=== PATIENT | male | born 1990 | race Caucasian/White ===

== ENCOUNTER 2017-01-18 12:44 | Emergency (ER) | payer SELFPAY ==
[~2017-01-18] VITALS: Ht 188 cm; Wt 85.0 kg
[~2017-01-18 12:44] MED LIST: LEVE500 PO; PHEN100 PO
[2017-01-18 12:47] VITALS: BP 141/74; PULSE 71; RESP 16; O2SAT 97
[2017-01-18 13:22] VITALS: BP 119/60; PULSE 62; RESP 16; O2SAT 96
[2017-01-18 13:54] LABS: AUTOMATED NEUTROPHIL # 6.2 TH/MM3 (1.8-7.7); BASOPHIL % 0.1 % (0.0-2.0); EOSINOPHIL % 0.5 % (0.0-4.0); HEMATOCRIT 37.4 % (39.0-51.0); HEMO FLAGS DIFF FINAL; LYMPH % 10.1 % (9.0-44.0); LYMPHOCYTE # 0.7 TH/MM3 (1.0-4.8); MEAN CELL VOLUME 91.6 FL (80.0-100.0); MEAN CORPUSCULAR HEMOGLOBIN 31.9 PG (27.0-34.0); MEAN CORPUSCULAR HGB CONC 34.8 % (32.0-36.0); NEUT % 85.3 % (16.0-70.0); PLATELET COUNT 227 TH/MM3 (150-450); RED BLOOD COUNT 4.09 MIL/MM3 (4.50-5.90); RED CELL DISTRIBUTION WIDTH 12.6 % (11.6-17.2); WHITE BLOOD COUNT 7.3 TH/MM3 (4.0-11.0)
--- NOTE | 2017-01-18 14:01 | PD ---
HPI Chief Complaint: Suicide Ideation/Attempt Time Seen by Provider: 13:03 Travel History International Travel<30 days: No Contact w/Intl Traveler<30days: No Traveled to known affect area: No History of Present Illness HPI The patient is a 26-year-old male who presents to the emergency department for suicidal ideation. The patient states he has a history of alcohol abuse and depressive disorder, over the last month as been contemplating suicide. Patient states he has tried suicide in the past isolated in his wrist and drug ingestion. The patient states he is having thoughts of suicide, has thought of shooting himself in the mouth. The patient states he placed a gun in his mouth, however, the gun misfired. The patient also notes intermittent heavy alcohol use with previous seizure secondary to withdrawal. The patient states he drinks liquor, occasionally a pint per day. The patient's last drink of alcohol was last night, approximately 4 located. He denies any current chest pain, shortness of breath, nausea, vomiting, or abdominal pain. The patient's symptoms are moderate, there are no current alleviating or exacerbating factors. He denies any hallucinations or delusions. He denies any homicidal ideation. PFSH Past Medical History Hx Anticoagulant Therapy: No Blood Disorders: No Bipolar Disorder: Yes Anxiety: Yes Depression: Yes Cancer: No Cardiovascular Problems: No Chemotherapy: No Cerebrovascular Accident: No Diabetes: No Diminished Hearing: No Endocrine: No Genitourinary: No Hepatitis: Yes (Hep C) Immune Disorder: No Musculoskeletal: No Psychiatric: Yes (bipolar schizophrenic) Reproductive: No Respiratory: No Immunizations Current: Yes Seizures: Yes Influenza Vaccination: No Past Surgical History Abdominal Surgery: Yes (gallbladder) AICD: No Appendectomy: Yes Cardiac Surgery: No Cholecystectomy: Yes (May 2010) Ear Surgery: No Endocrine Surgery: No Eye Surgery: No Genitourinary Surgery: No Gynecologic Surgery: No Hysterectomy: No Oral Surgery: No Pacemaker: No Thoracic Surgery: No Other Surgery: Yes (gallbladder & appendix) Social History Alcohol Use: Yes (06/29/16) Tobacco Use: Yes (1 ppd) Substance Use: Yes (pt sts on methadone currently) Allergies-Medications (Allergen,Severity, Reaction): Coded Allergies: No Known Allergies (Verified , 06/30/16) Reported Meds & Prescriptions Reported Meds & Active Scripts Active Keppra (Levetriacetam) 500 Mg Tab 500 Mg PO BID 30 Days Reported Dilantin 100 Mg Kapseals (Phenytoin Sodium) 100 Mg Caper 100 Mg PO Q12H Review of Systems Except as stated in HPI: all other systems reviewed are Neg General / Constitutional: No: Fever Cardiovascular: No: Chest Pain or Discomfort Respiratory: No: Shortness of Breath Gastrointestinal: No: Nausea, Vomiting, Abdominal Pain Musculoskeletal: No: Weakness Psychiatric: Positive: Depression, Suicidal Ideations, Substance Abuse ( alcohol use), No: Homicidal Ideation Physical Exam Narrative GENERAL: Awake, alert, 26-year-old male who appears his stated age and is in no acute respiratory distress. SKIN: Warm and dry. HEAD: Atraumatic. Normocephalic. EYES: Pupils equal and round. No scleral icterus. No injection or drainage. ENT: No nasal bleeding or discharge. Mucous membranes pink and moist. NECK: Trachea midline. No JVD. CARDIOVASCULAR: Regular rate and rhythm. No murmur appreciated. RESPIRATORY: No accessory muscle use. Clear to auscultation. Breath sounds equal bilaterally. GASTROINTESTINAL: Abdomen soft, non-tender, nondistended. No rebound tenderness. MUSCULOSKELETAL: No obvious deformities. No clubbing. No cyanosis. No edema. NEUROLOGICAL: Awake and alert. No obvious cranial nerve deficits. Motor grossly within normal limits. Normal speech. Nonfocal. PSYCHIATRIC: Appropriate mood and affect; insight and judgment normal. Data Data Last Documented VS Vital Signs Date Time Temp Pulse Resp B/P Pulse Ox O2 Delivery O2 Flow Rate FiO2 01/18/17 13:22 62 16 119/60 96 Room Air Orders Resp Home Oxygen Walk Test (01/18/17 ) Complete Blood Count With Diff (01/18/17 13:20) Comprehensive Metabolic Panel (01/18/17 13:20) Psych Screen (01/18/17 13:20) Drug Screen, Random Urine (01/18/17 13:20) Alcohol (Ethanol) (01/18/17 13:20) Chlordiazepoxide (Librium) (01/18/17 13:30) Labs Laboratory Tests Test 01/18/17 13:40 White Blood Count 7.3 TH/MM3 Red Blood Count 4.09 MIL/MM3 Hemoglobin 13.0 GM/DL Hematocrit 37.4 % Mean Corpuscular Volume 91.6 FL Mean Corpuscular Hemoglobin 31.9 PG Mean Corpuscular Hemoglobin 34.8 % Concent Red Cell Distribution Width 12.6 % Platelet Count 227 TH/MM3 Mean Platelet Volume 7.6 FL Neutrophils (%) (Auto) 85.3 % Lymphocytes (%) (Auto) 10.1 % Monocytes (%) (Auto) 4.0 % Eosinophils (%) (Auto) 0.5 % Basophils (%) (Auto) 0.1 % Neutrophils # (Auto) 6.2 TH/MM3 Lymphocytes # (Auto) 0.7 TH/MM3 Monocytes # (Auto) 0.3 TH/MM3 Eosinophils # (Auto) 0.0 TH/MM3 Basophils # (Auto) 0.0 TH/MM3 CBC Comment DIFF FINAL Differential Comment Sodium Level 139 MEQ/L Potassium Level 3.8 MEQ/L Chloride Level 104 MEQ/L Carbon Dioxide Level 25.5 MEQ/L Anion Gap 10 MEQ/L Blood Urea Nitrogen 15 MG/DL Creatinine 0.79 MG/DL Estimat Glomerular Filtration 117 ML/MIN Rate Random Glucose 91 MG/DL Calcium Level 9.2 MG/DL Total Bilirubin 0.7 MG/DL Aspartate Amino Transf 21 U/L (AST/SGOT) Alanine Aminotransferase 54 U/L (ALT/SGPT) Alkaline Phosphatase 114 U/L Total Protein 7.3 GM/DL Albumin 4.0 GM/DL Urine Opiates Screen NEG Urine Barbiturates Screen NEG Urine Amphetamines Screen NEG Urine Benzodiazepines Screen NEG Urine Cocaine Screen POS Urine Cannabinoids Screen POS Ethyl Alcohol Level LESS THAN 3 MG/DL MDM Medical Decision Making Medical Screen Exam Complete: Yes Emergency Medical Condition: Yes Medical Record Reviewed: Yes Interpretation(s) Laboratory Tests Test 01/18/17 13:40 White Blood Count 7.3 TH/MM3 Red Blood Count 4.09 MIL/MM3 Hemoglobin 13.0 GM/DL Hematocrit 37.4 % Mean Corpuscular Volume 91.6 FL Mean Corpuscular Hemoglobin 31.9 PG Mean Corpuscular Hemoglobin 34.8 % Concent Red Cell Distribution Width 12.6 % Platelet Count 227 TH/MM3 Mean Platelet Volume 7.6 FL Neutrophils (%) (Auto) 85.3 % Lymphocytes (%) (Auto) 10.1 % Monocytes (%) (Auto) 4.0 % Eosinophils (%) (Auto) 0.5 % Basophils (%) (Auto) 0.1 % Neutrophils # (Auto) 6.2 TH/MM3 Lymphocytes # (Auto) 0.7 TH/MM3 Monocytes # (Auto) 0.3 TH/MM3 Eosinophils # (Auto) 0.0 TH/MM3 Basophils # (Auto) 0.0 TH/MM3 CBC Comment DIFF FINAL Differential Comment Sodium Level 139 MEQ/L Potassium Level 3.8 MEQ/L Chloride Level 104 MEQ/L Carbon Dioxide Level 25.5 MEQ/L Anion Gap 10 MEQ/L Blood Urea Nitrogen 15 MG/DL Creatinine 0.79 MG/DL Estimat Glomerular Filtration 117 ML/MIN Rate Random Glucose 91 MG/DL Calcium Level 9.2 MG/DL Total Bilirubin 0.7 MG/DL Aspartate Amino Transf 21 U/L (AST/SGOT) Alanine Aminotransferase 54 U/L (ALT/SGPT) Alkaline Phosphatase 114 U/L Total Protein 7.3 GM/DL Albumin 4.0 GM/DL Urine Opiates Screen NEG Urine Barbiturates Screen NEG Urine Amphetamines Screen NEG Urine Benzodiazepines Screen NEG Urine Cocaine Screen POS Urine Cannabinoids Screen POS Ethyl Alcohol Level LESS THAN 3 MG/DL Differential Diagnosis Differential diagnosis includes substance induced mood disorder, alcohol intoxication, depressive disorder NOS, mood disorder NOS, malingering. Narrative Course Labs were drawn and sent. Psychiatric evaluation was ordered. Patient was administered Librium 20 mg orally. Tox screen is positive for cocaine and cannabinoids, alcohol is negative. Patient is medically clear to be evaluated by psychiatry. Disposition as per psych. Diagnosis Primary Impression: Substance induced mood disorder Additional Impression: Suicidal ideation Condition: Stable Mikey Coffman MD Jan 18, 2017 14:00
[2017-01-18 14:07] LABS: ALT (GPT) 54 U/L (12-78); AMPHETAMINE, URINE NEG (NEG); ANION GAP 10 MEQ/L (5-15); AST (GOT) 21 U/L (15-37); BARBITURATES, URINE NEG (NEG); BICARBONATE 25.5 MEQ/L (21.0-32.0); BLOOD UREA NITROGEN 15 MG/DL (7-18); CHLORIDE 104 MEQ/L (98-107); COCAINE, URINE POS (NEG); GLOMERULAR FILTRATION RATE 117 ML/MIN (>89); POTASSIUM 3.8 MEQ/L (3.5-5.1); SODIUM (NA) 139 MEQ/L (136-145)
[2017-01-18 14:09] LABS: ALKALINE PHOSPHATASE 114 U/L (45-117); TOTAL BILIRUBIN ADULT 0.7 MG/DL (0.2-1.0)
[2017-01-18] MEDS ORDERED: METH40TA PO (14:58)
[2017-01-18 19:11] VITALS: BP 129/67; PULSE 62; RESP 16; O2SAT 99
[2017-01-18 22:52] VITALS: BP 111/55; PULSE 57; RESP 17; O2SAT 100
[2017-01-19 02:15] VITALS: BP 115/69; PULSE 62; RESP 18; TEMP 97.5; O2SAT 96
[2017-01-19 06:07] VITALS: BP 132/80; PULSE 51; RESP 16; O2SAT 99
--- NOTE | 2017-01-19 09:33 | MB ---
cc: BOBBY ZHOU MD DATE OF CONSULTATION 01/19/2017 PHYSICIAN REQUESTING CONSULTATION Emergency Department. REASON FOR CONSULTATION Voluntary psychiatric evaluation. HISTORY OF PRESENT ILLNESS Mr. Negro is a 26-year-old male with a history of polysubstance use issues who presented to the emergency department on a voluntary basis requesting a Schroeder Act and claiming suicidality as well as substance use, chiefly alcoholism. Reviewing the electronic medical record, I see the patient was admitted here under Dr. Gregg in 2009. The patient is seen and examined. Chart reviewed. Case discussed with nursing staff who reports that the patient's stated goal on arriving in the [facility] was getting into some sort of detox facility. The nurse arranged for the patient to enter into [facility] detox program but the patient refused saying that he "did not want to wake up at 07:00 a.m. and go to group therapy throughout the day." He said he "wanted somewhere where [he] could just do [his ] own thing." Nursing staff reports that they have also reached out to the patient's father with the patient's permission and the father describes the patient as "worthless. He does not work. He just drinks." Father apparently wants nothing to do with him. There has been no evidence of any suicidality or homicidality while under observation in the [facility]. On my examination this morning, the patient presents as extremely antisocial and manipulative. He is initially somewhat vague as to his goals in coming into the psychiatric emergency room. He claims to feel "depressed" but does not appear at all dysphoric, either under direct examination or when surreptitiously examined from the nursing station. He is unable to spontaneously generate any real depressive or hypomanic/manic symptoms. He denies any audiovisual hallucinations. I can elicit no delusional beliefs. He does not describe any current suicidality or homicidality but makes vague allusions to recent suicide attempts including putting a gun in his mouth, reportedly about a week ago. The remainder of the psychiatric ROS is negative. The patient concludes by saying that he wants us to get him into a chem dep program where participation in activities is not required. PAST PSYCHIATRIC HISTORY The patient reports a history of depression and polysubstance use issues. He is not currently under the care of a psychiatrist. He is not taking any psychotropic medications. His most recent admission was about a year ago for depression reportedly. He reports that he has suicide attempts including an overdose on Tylenol about 7 years ago. He says that he tried to put a gun in his mouth about a week ago but it misfired. FAMILY HISTORY The patient reports that his maternal aunt had bipolar disorder and completed suicide. He denies any other family psychiatric history. CHEMICAL DEPENDENCY HISTORY The patient maintains that he is drinking a half a gallon of vodka a day and is blacking out because of his drinking, although his alcohol level was undetectable on presentation here. He also says that he is going to the methadone clinic but cannot afford his methadone dose of 100 mg daily. He also uses cocaine occasionally. SOCIAL HISTORY The patient reports that he is in the process of moving into a new place. He is future-oriented in this regard. He is single with no children. Denies any history. He does endorse a history of drug charges and violating probation. He denies any history of violent crime. He has an 11th grade education and is not working. Apparently the gun was a roommate's and he is no longer in direct contact with that roommate from what I can gather. PAST MEDICAL HISTORY No reported medical issues. REVIEW OF SYSTEMS No reported headache, vision or hearing changes, chest pain, shortness of breath, bowel or bladder issues. No reported withdrawal symptoms. No other physical complaints. PHYSICAL EXAMINATION Vital signs: T97.5; P51; R16; BP132/80; SpO2 99% RA. Physical examination was completed in the emergency room by the ER staff and the patient was medically cleared. On my examination today, the patient appears to be well-nourished and well-developed and in no acute physical distress. No motoric abnormalities noted. No hand tremor, no diaphoresis, no mydriasis, no lacrimation, no rhinorrhea, no piloerection, no other evidence of any GABAergic or opiate withdrawal. LABORATORY Reviewed. CBC, CMP unremarkable. Toxicology was positive for cocaine and cannabinoids. Alcohol level was undetectable as I said. MENTAL STATUS EXAM The patient is in hospital gown. He is well-groomed. He is maintaining basic hygiene. He is awake, alert and oriented x 3. No evidence of delirium. No abnormal motor movements noted. Steady gait and station. Speech is within normal limits for rate, tone and volume. Language and fund of knowledge seem average. Mood is reportedly depressed but there is a significant mismatch with his affect which is fairly full and reactive and not at all depressed. Thought process linear. No loosening of associations. No evident delusions. Denies audiovisual hallucinations. No current suicidal or homicidal ideation. Insight and judgment are perhaps fair at best generally but likely poor with respect to his substance use issues. ASSESSMENT AND PLAN 1. Antisocial personality disorder, suspected, possibly with some other comorbid cluster B personality traits. 2. Polysubstance dependence. 3. Possibly malingering to obtain opiate replacement as he reports he cannot afford his methadone. This is a 26-year-old male with psychiatric history as detailed above who presents voluntarily for psychiatric evaluation. The patient is extremely antisocial and manipulative on my examination and has apparently rebuffed the earnest efforts of the nursing staff to achieve his stated goal of getting him to a detoxification facility because he finds the regimen at the proposed facility too taxing. I can detect no unstable mood, anxiety or psychotic disorder in this patient at this time. I have explained to him that this program could be helpful for him and that he should take advantage of the opportunity to get help for his substance use issues as this is likely his greatest risk factor for ongoing self-harm. He has declined, reiterating that he just wants somewhere where he can chill out for awhile. Patient is requesting discharge from the psychiatric emergency room. He is not presently suicidal or homicidal. He appears to be attending to his basic needs. His issues seem related primarily to substance use and antisocial personality. The patient does not meet Schroeder Act criteria after weighing the relevant factors. Given that he does not meet Schroeder Act criteria and given that he is requesting discharge from the ED, I have no choice but to recommend his discharge. I fear his prognosis is poor if he cannot get his substance use and personality issues under better control. Patient to return to ED for any concerning psychiatric symptoms as part of a general safety plan. Nursing staff will provide him with an outpatient chemical dependency and general mental health referral. The patient is psychiatrically cleared for discharge from . the emergency room. Thank you very much for this consultation. Bobby Zhou DC/AISSATOU /8:32 AM /9:17 AM MTDShon
== END 2017-01-19 09:04 | disposition home or self-care (01) ==
LOC: NEPE 12:44 → NEPJ 01-19 09:04
DX: F39 Unspecified mood [affective] disorder (principal); R45.851 Suicidal ideations; F20.9 Schizophrenia, unspecified; F31.9 Bipolar disorder, unspecified; F41.8 Other specified anxiety disorders; B19.20 Unspecified viral hepatitis C without hepatic coma; F17.210 Nicotine dependence, cigarettes, uncomplicated
CPT/HCPCS: 80053; 80307; 85025; 99283

== ENCOUNTER 2017-01-19 23:56 | Emergency (ER) | payer SELFPAY ==
[~2017-01-19 23:56] MED LIST changes: -LEVE500 PO; +METH40TA PO; -PHEN100 PO
[2017-01-20 00:20] VITALS: BP 125/68; PULSE 56; RESP 16; O2SAT 99
--- NOTE | 2017-01-20 01:10 | PD ---
HPI Chief Complaint: Psychiatric Symptoms Time Seen by Provider: 01:08 Travel History International Travel<30 days: No Contact w/Intl Traveler<30days: No History of Present Illness HPI Patient was transferred from [facility] under Schroeder act for suicidal ideations. Patient states he is still feeling suicidal but denies any homicidal ideations. Patient denies any medical concerns this time. He denies any chest pain, shortness of breath, headache, fever, nausea, vomiting, or diarrhea. Patient states that he has a history of alcohol withdrawal seizures and was on Librium yesterday when he was here. PFSH Past Medical History Hx Anticoagulant Therapy: No Blood Disorders: No Bipolar Disorder: Yes (FAMILY HISTORY PER PATIENT (AUNT)) Anxiety: Yes Depression: Yes Cancer: No Cardiovascular Problems: No Chemotherapy: No Cerebrovascular Accident: No Diabetes: No Diminished Hearing: No Endocrine: No Genitourinary: No Hepatitis: Yes (Hep C) Immune Disorder: No Implanted Vascular Access Dvce: No Musculoskeletal: No Psychiatric: Yes (bipolar schizophrenic) Reproductive: No Respiratory: No Immunizations Current: Yes Seizures: Yes (ALCOHOL WITHDRAWL) Past Surgical History Abdominal Surgery: Yes (gallbladder) AICD: No Appendectomy: Yes Cardiac Surgery: No Cholecystectomy: Yes (May 2010) Ear Surgery: No Endocrine Surgery: No Eye Surgery: No Genitourinary Surgery: No Gynecologic Surgery: No Hysterectomy: No Neurologic Surgery: No Oral Surgery: No Pacemaker: No Thoracic Surgery: No Other Surgery: Yes (gallbladder & appendix) Social History Alcohol Use: Yes (06/29/16) Tobacco Use: Yes (1 ppd) Substance Use: Yes Allergies-Medications (Allergen,Severity, Reaction): Coded Allergies: No Known Allergies (Verified , 06/30/16) Reported Meds & Prescriptions Reported Meds & Active Scripts Active Reported Methadone (Methadone HCl) 40 Mg Tab 100 Mg PO DAILY Review of Systems Except as stated in HPI: all other systems reviewed are Neg Physical Exam Narrative GENERAL: Well-developed, well nourished, in no acute distress, and non-ill appearing. SKIN: Warm and dry. HEAD: Atraumatic. Normocephalic. EYES: Pupils equal and round. EOMI. No scleral icterus. No injection or drainage. ENT: No nasal bleeding or discharge. Mucous membranes pink and moist. NECK: Trachea midline. Supple. No nuclear rigidity. CARDIOVASCULAR: Regular rate and rhythm. No murmur appreciated. RESPIRATORY: No accessory muscle use. No respiratory distress. Clear to auscultation. Breath sounds equal bilaterally. MUSCULOSKELETAL: No obvious deformities. No clubbing. No cyanosis. No edema. Full range of motion. NEUROLOGICAL: Awake and alert. No obvious cranial nerve deficits. Motor grossly within normal limits. Normal speech. PSYCHIATRIC: Appropriate mood and affect. Data Data Last Documented VS Vital Signs Date Time Temp Pulse Resp B/P Pulse Ox O2 Delivery O2 Flow Rate FiO2 01/20/17 00:20 56 16 125/68 99 Room Air Orders Psych Screen (01/20/17 00:23) Diet Regular Basic (01/20/17 Breakfast) MDM Medical Decision Making Medical Screen Exam Complete: Yes Emergency Medical Condition: Yes Differential Diagnosis Homicidal, suicidal, depression, alcohol withdrawal, other Narrative Course Patient was seen and examined. Labs were reviewed from [facility]. Patient medically cleared for further treatment and evaluation by psych. Final disposition per psych. Diagnosis Primary Impression: Suicidal ideation Condition: Stable Fer Chirinos Jan 20, 2017 01:10
[2017-01-20] MEDS ORDERED: LORazepam 2 MG TAB PO PRN (01:15)
[2017-01-20] MEDS ORDERED: FLUMAZENIL 0.5 MG/5 ML VIAL IV PUSH PRN (01:15)
[2017-01-20] MEDS ORDERED: LORazepam 1 MG TAB PO PRN (01:15)
[2017-01-20] MEDS ORDERED: LORazepam 2 MG/ML VIAL IV PUSH PRN ×4 (01:15)
[2017-01-20 02:00] VITALS: BP 130/72; PULSE 50; RESP 18; TEMP 97.1; O2SAT 98
[2017-01-20 06:20] VITALS: BP 125/68; PULSE 50; RESP 16; TEMP 97.4; O2SAT 100
--- NOTE | 2017-01-20 10:56 | PD ---
History of Present Illness Chief Complaint: Psychiatric Symptoms Time Seen by Provider: 10:30 Travel History International Travel<30 Days: No Contact w/Intl Traveler<30days: No Known affected area: No Legal Status Legal Status: Schroeder Act Schroeder Act Comment: INTITIATED BY: DR RAMIN NAVARRETE MD FROM [facility] History of Present Illness: This is a 26-year-old male who was brought to this emergency department under a Schroeder act initiated at [facility]. The patient was here yesterday and presented with multiple symptoms and an extensive history of alcohol and substance abuse. However he was discharged yesterday because he would only accept treatment for his alcoholism and substance abuse that did not require him to attend any therapies. The patient has been Schroeder acted back to this facility for making suicidal threats. This physician reviewed significant history from yesterday and 2009 as well as speaking with the patient. The patient continues to be extremely manipulative and antisocial. Apparently his father was called yesterday and does not want to help him due to his ongoing antisocial and substance abuse behavior. The patient continues to make threats to harm himself if he does not get his way. This physician feels that giving into the patient's manipulations is both enabling his ongoing substance abuse and counter therapeutic. Therefore, despite the patient's high risk for acting out and possibly harming himself, this physician will lift his Schroeder act and discharge him home. PFSH Past Medical History Hx Anticoagulant Therapy: No Blood Disorders: No Bipolar Disorder: Yes (FAMILY HISTORY PER PATIENT (AUNT)) Anxiety: Yes Depression: Yes Cancer: No Cardiovascular Problems: No Chemotherapy: No Cerebrovascular Accident: No Diabetes: No Diminished Hearing: No Endocrine: No Genitourinary: No Hepatitis: Yes (Hep C) Immune Disorder: No Implanted Vascular Access Dvce: No Musculoskeletal: No Psychiatric: Yes (bipolar schizophrenic) Reproductive: No Respiratory: No Immunizations Current: Yes Seizures: Yes (ALCOHOL WITHDRAWL) Past Surgical History Abdominal Surgery: Yes (gallbladder) AICD: No Appendectomy: Yes Cardiac Surgery: No Cholecystectomy: Yes (May 2010) Ear Surgery: No Endocrine Surgery: No Eye Surgery: No Genitourinary Surgery: No Gynecologic Surgery: No Hysterectomy: No Neurologic Surgery: No Oral Surgery: No Pacemaker: No Thoracic Surgery: No Other Surgery: Yes (gallbladder & appendix) Psychiatric History Psychiatric History Hx Psychiatric Treatment: PATIENT WAS LAST ADMITTED TO [facility] FROM 07/03/10 TO 07/10/10 FOR ADJUSTMENT REACTION. History of Inpatient Treatment: Yes Guns or firearms in home: Yes Social History Hx Alcohol Use: Yes (06/29/16) Hx Tobacco Use: Yes (1 ppd) Hx Substance Use: Yes Substance Use Type: Alcohol, Marijuana, Cocaine Other Substances Used: AGE 9 STARTED ABUSING DRUGS INCLUDING RITALIN. Hx of Substance Use Treatment: Yes Allergies-Medications (Allergen,Severity, Reaction): Coded Allergies: No Known Allergies (Verified , 06/30/16) Reported Meds & Prescriptions Reported Meds & Active Scripts Active Reported Methadone (Methadone HCl) 40 Mg Tab 100 Mg PO DAILY Review of Systems ROS Limitations: Clinical Condition Except as stated in HPI: all other systems reviewed are Neg Exam Exam Limitations: Clinical Condition Alert: Yes [place]: Person, Place, Date, Situation Mood: Calm Affect: Euthymic Speech: Clear, Logical Eye Contact: Normal Memory Intact: Immediate, Recent, Remote Delusions: No Suicidal: Ideation Insight/Judgement Impaired due to substance abuse but adequate. MDM Medical Decision Making Medical Record Reviewed: Yes Assessment/Plan Despite the patient's history and ongoing significant risk for acting out behavior, this physician is lifting his Schroeder act and discharging him home. To admit the patient for suicidal threats would be counter therapeutic. To admit the patient for alcohol and substance abuse would be inappropriate as this facility is not licensed for that kind of treatment. Furthermore, the patient does not want to actively participate in substance abuse treatment according to notes yesterday. He has not changed his mind today. Therefore this physician sees no reasonable alternative then to discharge him home. Orders Psych Screen (01/20/17 00:23) Diet Regular Basic (01/20/17 Breakfast) Alcohol Withdrawal Asmt-Ciwa ONCE (01/20/17 01:10) Flumazenil Inj (Romazicon Inj) (01/20/17 01:15) Lorazepam (Ativan) (01/20/17 01:15) Lorazepam Inj (Ativan Inj) (01/20/17 01:15) Lorazepam (Ativan) (01/20/17 01:15) Lorazepam Inj (Ativan Inj) (01/20/17 01:15) Lorazepam Inj (Ativan Inj) (01/20/17 01:15) Lorazepam Inj (Ativan Inj) (01/20/17 01:15) Diet Regular Basic (01/20/17 Lunch) Results Vital Signs Date Time Temp Pulse Resp B/P Pulse Ox O2 Delivery O2 Flow Rate FiO2 01/20/17 06:20 97.4 50 16 125/68 100 Room Air 01/20/17 02:00 97.1 50 18 130/72 98 Room Air 01/20/17 00:20 56 16 125/68 99 Room Air Diagnosis Primary Impression: Alcohol abuse Condition: Stable Francisco Le MD Jan 20, 2017 10:56
== END 2017-01-20 11:33 | disposition home or self-care (01) ==
LOC: NEPE 23:56 → NEPJ 01-20 11:33
DX: F32.9 Major depressive disorder, single episode, unspecified (principal); F10.10 Alcohol abuse, uncomplicated; R45.851 Suicidal ideations; B19.20 Unspecified viral hepatitis C without hepatic coma; F17.210 Nicotine dependence, cigarettes, uncomplicated
CPT/HCPCS: 99284

== ENCOUNTER 2017-10-24 11:00 | Emergency (ER) | payer SELFPAY ==
[2017-10-24] MEDS ORDERED: IOHEXOL 350 MG/ML 10 ML VIAL (for RAD DIAG) IVCONTRAST ONE (11:01)
[2017-10-24 11:02] VITALS: BP 144/92; PULSE 109; RESP 16; TEMP 98.5; O2SAT 98
[2017-10-24] MEDS ORDERED: AMBI10TA PO (11:47)
[2017-10-24] MEDS ORDERED: LORA-474 PO (11:47)
[2017-10-24] MEDS ORDERED: CYMB60CA PO (11:47)
--- NOTE | 2017-10-24 12:00 | PD ---
HPI Chief Complaint: Depression Time Seen by Provider: 11:38 Travel History International Travel<30 days: No Contact w/Intl Traveler<30days: No Traveled to known affect area: No History of Present Illness HPI 27-year-old male presents emergency Department voluntarily for psychiatric evaluation. He has had 2 suicidal attempts in the past week to week and a half. He tried hanging himself earlier in the week with a phone cord which snapped. He woke up this morning after taking six 30 milligram oxy's, six bars of Xanax, and drinking 2 handles of fireball 2 days ago in an attempt to kill himself. He for coming to the hospital for help he had a plan to go to the store by 6 bottles of Tylenol to take all of them. He has history of taking 6 bottles of Tylenol 6 years ago as suicidal attempt and being hospitalized for up to 40 days and was put on hospice and was told he was going to from liver failure. He says he is done with life and does not want to live anymore. Reports alcohol use daily. Reports smoking marijuana a few nights ago. Denies homicidal ideations. Denies visual or auditory hallucinations. Has history of anxiety, depression, PTSD and takes medications. Says his brother called him this morning and he talked to his 4-year-old goddaughter which changed his mind and he decided to come get help. Symptoms are aggravated by life events. He is complaining of right upper quadrant abdominal pain, diarrhea , vomiting that started when he woke up today. Denies fevers. History of hepatitis C. History of cholecystectomy. No known allergies. No other modifying factors or associated signs and symptoms. PFSH Past Medical History Hx Anticoagulant Therapy: No Blood Disorders: No Bipolar Disorder: Yes (FAMILY HISTORY PER PATIENT (AUNT)) Anxiety: Yes Depression: Yes Cancer: No Cardiovascular Problems: No Chemotherapy: No Cerebrovascular Accident: No Diabetes: No Diminished Hearing: No Endocrine: No Genitourinary: No Hepatitis: Yes (Hep C) Immune Disorder: No Implanted Vascular Access Dvce: No Musculoskeletal: No Psychiatric: Yes (bipolar schizophrenic) Reproductive: No Respiratory: No Immunizations Current: Yes Seizures: Yes (ALCOHOL WITHDRAWL) Tetanus Vaccination: < 5 Years Past Surgical History Abdominal Surgery: Yes (gallbladder) AICD: No Appendectomy: Yes Cardiac Surgery: No Cholecystectomy: Yes (May 2010) Ear Surgery: No Endocrine Surgery: No Eye Surgery: No Genitourinary Surgery: No Gynecologic Surgery: No Hysterectomy: No Neurologic Surgery: No Oral Surgery: No Pacemaker: No Thoracic Surgery: No Other Surgery: Yes (gallbladder & appendix) Social History Alcohol Use: Yes Tobacco Use: Yes (1 ppd) Substance Use: Yes Allergies-Medications (Allergen,Severity, Reaction): Coded Allergies: No Known Allergies (Verified Adverse Reaction, Unknown, 10/24/17) Reported Meds & Prescriptions Reported Meds & Active Scripts Active Reported Ambien (Zolpidem Tartrate) 10 Mg Tab 10 Mg PO HS PRN Ativan (Lorazepam) 1 Mg Tab 1 Mg PO TID PRN Cymbalta DR (Duloxetine HCl) 60 Mg Capdr 60 Mg PO DAILY Review of Systems Except as stated in HPI: all other systems reviewed are Neg Physical Exam Narrative GENERAL: Well-nourished, well-developed male patient, in no acute distress; afebrile, nontoxic appearing SKIN: Warm and dry. HEAD: Atraumatic. Normocephalic. EYES: Pupils equal and round. ENT: Mucosa pink and moist. NECK: Supple. Trachea midline. CARDIOVASCULAR: Regular rate and rhythm. No murmur appreciated. RESPIRATORY: No accessory muscle use. Clear to auscultation. Breath sounds equal bilaterally. GASTROINTESTINAL: Abdomen soft, right upper quadrant tenderness, nondistended. Hepatic and splenic margins not palpable. Bowel sounds are active 4 quadrants. MUSCULOSKELETAL: No obvious deformities. No clubbing. No cyanosis. No edema. NEUROLOGICAL: Awake and alert. Oriented 3. No obvious cranial nerve deficits. Motor grossly within normal limits. Normal speech. Moves all extremities. 5/5 strength to all extremities. PSYCHIATRIC: No delusional thought processes. No hallucinations. Data Data Last Documented VS Vital Signs Date Time Temp Pulse Resp B/P (MAP) Pulse Ox O2 Delivery O2 Flow Rate FiO2 10/24/17 22:44 73 18 111/57 (75) 97 Room Air 10/24/17 19:05 97.1 Orders Orders Complete Blood Count With Diff (10/24/17 11:14) Basic Metabolic Panel (Bmp) (10/24/17 11:14) Psych Screen (10/24/17 11:14) Drug Screen, Random Urine (10/24/17 11:14) Alcohol (Ethanol) (10/24/17 11:14) Salicylates (Aspirin) (10/24/17 11:14) Tylenol (Acetaminophen) (10/24/17 11:14) ^ Sitter (10/24/17 12:11) Ct Abd/Pel W Iv Contrast(Rout) (10/24/17 12:23) Iv Access Insert/Monitor (10/24/17 12:23) Ecg Monitoring (10/24/17 12:23) Oximetry (10/24/17 12:23) Sodium Chloride 0.9% Flush (Ns Flush) (10/24/17 12:30) Vascular Access Team Consult/P PRN (10/24/17 12:43) Vascular Poc Ultrasound (10/24/17 ) Diet Regular Basic (10/24/17 Dinner) Lipase (10/24/17 14:49) Hepatic Functional Panel (10/24/17 15:27) Iohexol 350 Inj (Omnipaque 350 Inj) (10/24/17 11:01) Diphenoxylate/Atropine Tab (Lomotil Tab) (10/24/17 20:45) Ed Discharge Order (10/24/17 22:16) Labs Laboratory Tests Test 10/24/17 11:30 10/24/17 11:35 10/24/17 19:32 Urine Opiates Screen NEG Urine Barbiturates Screen NEG Urine Amphetamines Screen NEG Urine Benzodiazepines Screen POS Urine Cocaine Screen NEG Urine Cannabinoids Screen NEG Blood Urea Nitrogen 11 MG/DL Creatinine 0.67 MG/DL Random Glucose 99 MG/DL Calcium Level 9.0 MG/DL Sodium Level 139 MEQ/L Potassium Level 3.6 MEQ/L Chloride Level 111 MEQ/L Carbon Dioxide Level 19.4 MEQ/L Anion Gap 9 MEQ/L Estimat Glomerular Filtration Rate 140 ML/MIN Total Bilirubin 0.4 MG/DL Direct Bilirubin 0.1 MG/DL Indirect Bilirubin 0.3 MG/DL Aspartate Amino Transf (AST/SGOT) 14 U/L Alanine Aminotransferase (ALT/SGPT) 27 U/L Alkaline Phosphatase 77 U/L Total Protein 8.0 GM/DL Albumin 3.9 GM/DL Lipase 76 U/L Salicylates Level LESS THAN 1.7 MG/DL Acetaminophen Level LESS THAN 2.0 MCG/ML Ethyl Alcohol Level 108 MG/DL White Blood Count 5.9 TH/MM3 Red Blood Count 4.39 MIL/MM3 Hemoglobin 14.0 GM/DL Hematocrit 40.0 % Mean Corpuscular Volume 91.2 FL Mean Corpuscular Hemoglobin 31.8 PG Mean Corpuscular Hemoglobin Concent 34.9 % Red Cell Distribution Width 13.5 % Platelet Count 257 TH/MM3 Mean Platelet Volume 7.0 FL Neutrophils (%) (Auto) 58.0 % Lymphocytes (%) (Auto) 29.2 % Monocytes (%) (Auto) 10.0 % Eosinophils (%) (Auto) 2.4 % Basophils (%) (Auto) 0.4 % Neutrophils # (Auto) 3.4 TH/MM3 Lymphocytes # (Auto) 1.7 TH/MM3 Monocytes # (Auto) 0.6 TH/MM3 Eosinophils # (Auto) 0.1 TH/MM3 Basophils # (Auto) 0.0 TH/MM3 CBC Comment DIFF FINAL Differential Comment MDM Medical Decision Making Medical Screen Exam Complete: Yes Emergency Medical Condition: Yes Medical Record Reviewed: Yes Differential Diagnosis Abdominal pain, suicidal ideation Narrative Course Patient presents voluntarily. He was Schroeder acted upon arrival to the ER. She is complaining of right upper quadrant abdominal pain, nausea, vomiting, diarrhea. Psych screen has been ordered. If the laboratory results are unremarkable, the patient will be medically cleared for psychiatric evaluation and disposition. CT abdomen/pelvis ordered. 1650: CT abdomen/pelvis concludes: Normal examination status post appendectomy. Cholecystectomy clips. No adenopathy free fluid or mass. BMP is unremarkable. 1900: CBC is pending. Labs will be reviewed and patient was medically cleared if unremarkable. Psych screen has been ordered. If the laboratory results are unremarkable, the patient will be medically cleared for psychiatric evaluation and disposition. Diagnosis Primary Impression: Medical clearance for psychiatric admission Additional Impression: Right upper quadrant abdominal pain Condition: Stable Joy Kapoor Oct 24, 2017 12:00
[2017-10-24 12:14] LABS: BICARBONATE 19.4 MEQ/L (21.0-32.0); BLOOD UREA NITROGEN 11 MG/DL (7-18); CHLORIDE 111 MEQ/L (98-107); CREATININE 0.67 MG/DL (0.60-1.30); GLOMERULAR FILTRATION RATE 140 ML/MIN (>89); GLUCOSE,RANDOM 99 MG/DL (74-106); SODIUM (NA) 139 MEQ/L (136-145)
[2017-10-24 12:19] LABS: ACETAMINOPHEN LESS THAN 2.0 MCG/ML (10.0-30.0)
[2017-10-24] MEDS ORDERED: SODIUM CHLORIDE 0.9% FLUSH 10 ML FLUSH IV FLUSH PRN (12:30)
[2017-10-24 13:45] VITALS: O2SAT 99
--- NOTE | 2017-10-24 16:44 | RADRPT ---
EXAM DATE/TIME: 10/24/2017 16:22 [facility] COMPARISON: No previous studies available for comparison. INDICATIONS : Right mid abdomen pain. IV CONTRAST: 91 cc Omnipaque 350 (iohexol) IV ORAL CONTRAST: No oral contrast ingested. RADIATION DOSE: 10.33 CTDIvol (mGy) MEDICAL HISTORY : Hepatitis C. SURGICAL HISTORY : Cholecystectomy. Appendectomy. ENCOUNTER: Initial ACUITY: 1 day PAIN SCALE: 7/10 LOCATION: Abdomen TECHNIQUE: Volumetric scanning of the abdomen and pelvis was performed. Using automated exposure control and ad justment of the mA and/or kV according to patient size, radiation dose was kept as low as reasonably achievable to obtain optimal diagnostic quality images. DICOM format image data is available electro nically for review and comparison. FINDINGS: LOWER LUNGS: The visualized lower lungs are clear. LIVER: Homogeneous density without lesion. There is no dilation of the biliary tree. Cholecystectomy clips. SPLEEN: Normal size without lesion. PANCREAS: Within normal limits. KIDNEYS: Normal in size and shape. There is no mass, stone or hydronephrosis. ADRENAL GLANDS: Within normal limits. VASCULAR: There is no aortic aneurysm. BOWEL/MESENTERY: The stomach, small bowel, and colon demonstrate no acute abnormality. There is no free intraperitone al air or fluid. Suture in the right lower quadrant consistent with appendectomy ABDOMINAL WALL: Within normal limits. RETROPERITONEUM: There is no lymphadenopathy. BLADDER: No wall thickening or mass. REPRODUCTIVE: Within normal limits. INGUINAL: There is no lymphadenopathy or hernia. MUSCULOSKELETAL: Within normal limits for patient age. CONCLUSION: Normal examination status post appendectomy. Cholecystectomy clips. No adenopathy free fluid or mass. Joseph Montesinos MD on October 24, 2017 at 16:41 Board Certified Radiologist. This report was verified electronically.
[2017-10-24 16:55] LABS: TOTAL BILIRUBIN ADULT 0.4 MG/DL (0.2-1.0)
[2017-10-24 17:05] LABS: ALBUMIN 3.9 GM/DL (3.4-5.0); DIRECT BILIRUBIN ADULT 0.1 MG/DL (0.0-0.2); INDIRECT BILIRUBIN 0.3 MG/DL (0.0-0.8)
[2017-10-24 19:05] VITALS: BP 135/66; PULSE 72; RESP 20; TEMP 97.1; O2SAT 99
[2017-10-24 20:11] LABS: AUTOMATED NEUTROPHIL # 3.4 TH/MM3 (1.8-7.7); BASOPHIL % 0.4 % (0.0-2.0); EOSINOPHIL # 0.1 TH/MM3 (0-0.4); EOSINOPHIL % 2.4 % (0.0-4.0); LYMPH % 29.2 % (9.0-44.0); LYMPHOCYTE # 1.7 TH/MM3 (1.0-4.8); MEAN CELL VOLUME 91.2 FL (80.0-100.0); MEAN CORPUSCULAR HEMOGLOBIN 31.8 PG (27.0-34.0); MEAN CORPUSCULAR HGB CONC 34.9 % (32.0-36.0); MONOCYTE # 0.6 TH/MM3 (0-0.9); PLATELET COUNT 257 TH/MM3 (150-450); RED BLOOD COUNT 4.39 MIL/MM3 (4.50-5.90); RED CELL DISTRIBUTION WIDTH 13.5 % (11.6-17.2); WHITE BLOOD COUNT 5.9 TH/MM3 (4.0-11.0)
[2017-10-24] MEDS ORDERED: DIPHENOXYLATE/ATROPINE 2.5 MG/0.025 MG TAB PO ONE (20:45)
--- NOTE | 2017-10-24 22:19 | PD ---
Physical Exam Date Seen by Provider: Oct 24, 2017 Time Seen by Provider: 22:17 Data Data Last Documented VS Vital Signs Date Time Temp Pulse Resp B/P (MAP) Pulse Ox O2 Delivery O2 Flow Rate FiO2 10/24/17 19:05 97.1 72 20 135/66 (89) 99 Room Air Orders Orders Complete Blood Count With Diff (10/24/17 11:14) Basic Metabolic Panel (Bmp) (10/24/17 11:14) Psych Screen (10/24/17 11:14) Drug Screen, Random Urine (10/24/17 11:14) Alcohol (Ethanol) (10/24/17 11:14) Salicylates (Aspirin) (10/24/17 11:14) Tylenol (Acetaminophen) (10/24/17 11:14) ^ Sitter (10/24/17 12:11) Ct Abd/Pel W Iv Contrast(Rout) (10/24/17 12:23) Iv Access Insert/Monitor (10/24/17 12:23) Ecg Monitoring (10/24/17 12:23) Oximetry (10/24/17 12:23) Sodium Chloride 0.9% Flush (Ns Flush) (10/24/17 12:30) Vascular Access Team Consult/P PRN (10/24/17 12:43) Vascular Poc Ultrasound (10/24/17 ) Diet Regular Basic (10/24/17 Dinner) Lipase (10/24/17 14:49) Hepatic Functional Panel (10/24/17 15:27) Iohexol 350 Inj (Omnipaque 350 Inj) (10/24/17 11:01) Diphenoxylate/Atropine Tab (Lomotil Tab) (10/24/17 20:45) Ed Discharge Order (10/24/17 22:16) Labs Laboratory Tests Test 10/24/17 11:30 10/24/17 11:35 10/24/17 19:32 Urine Opiates Screen NEG Urine Barbiturates Screen NEG Urine Amphetamines Screen NEG Urine Benzodiazepines Screen POS Urine Cocaine Screen NEG Urine Cannabinoids Screen NEG Blood Urea Nitrogen 11 MG/DL Creatinine 0.67 MG/DL Random Glucose 99 MG/DL Calcium Level 9.0 MG/DL Sodium Level 139 MEQ/L Potassium Level 3.6 MEQ/L Chloride Level 111 MEQ/L Carbon Dioxide Level 19.4 MEQ/L Anion Gap 9 MEQ/L Estimat Glomerular Filtration Rate 140 ML/MIN Total Bilirubin 0.4 MG/DL Direct Bilirubin 0.1 MG/DL Indirect Bilirubin 0.3 MG/DL Aspartate Amino Transf (AST/SGOT) 14 U/L Alanine Aminotransferase (ALT/SGPT) 27 U/L Alkaline Phosphatase 77 U/L Total Protein 8.0 GM/DL Albumin 3.9 GM/DL Lipase 76 U/L Salicylates Level LESS THAN 1.7 MG/DL Acetaminophen Level LESS THAN 2.0 MCG/ML Ethyl Alcohol Level 108 MG/DL White Blood Count 5.9 TH/MM3 Red Blood Count 4.39 MIL/MM3 Hemoglobin 14.0 GM/DL Hematocrit 40.0 % Mean Corpuscular Volume 91.2 FL Mean Corpuscular Hemoglobin 31.8 PG Mean Corpuscular Hemoglobin Concent 34.9 % Red Cell Distribution Width 13.5 % Platelet Count 257 TH/MM3 Mean Platelet Volume 7.0 FL Neutrophils (%) (Auto) 58.0 % Lymphocytes (%) (Auto) 29.2 % Monocytes (%) (Auto) 10.0 % Eosinophils (%) (Auto) 2.4 % Basophils (%) (Auto) 0.4 % Neutrophils # (Auto) 3.4 TH/MM3 Lymphocytes # (Auto) 1.7 TH/MM3 Monocytes # (Auto) 0.6 TH/MM3 Eosinophils # (Auto) 0.1 TH/MM3 Basophils # (Auto) 0.0 TH/MM3 CBC Comment DIFF FINAL Differential Comment [facility] [place] Medical Record Reviewed: Yes Supervised Visit with NAN: No Interpretation(s) Last 24 hours Impressions Abdomen/Pelvis CT 10/24/17 1223 Signed Impressions: Service Date/Time: Tuesday, October 24, 2017 16:22 - CONCLUSION: Normal examination status post appendectomy. Cholecystectomy clips. No adenopathy free fluid or mass. Joseph Montesinos MD Laboratory Tests Test 10/24/17 11:30 10/24/17 11:35 10/24/17 19:32 Urine Opiates Screen NEG Urine Barbiturates Screen NEG Urine Amphetamines Screen NEG Urine Benzodiazepines Screen POS Urine Cocaine Screen NEG Urine Cannabinoids Screen NEG Blood Urea Nitrogen 11 MG/DL Creatinine 0.67 MG/DL Random Glucose 99 MG/DL Calcium Level 9.0 MG/DL Sodium Level 139 MEQ/L Potassium Level 3.6 MEQ/L Chloride Level 111 MEQ/L Carbon Dioxide Level 19.4 MEQ/L Anion Gap 9 MEQ/L Estimat Glomerular Filtration Rate 140 ML/MIN Total Bilirubin 0.4 MG/DL Direct Bilirubin 0.1 MG/DL Indirect Bilirubin 0.3 MG/DL Aspartate Amino Transf (AST/SGOT) 14 U/L Alanine Aminotransferase (ALT/SGPT) 27 U/L Alkaline Phosphatase 77 U/L Total Protein 8.0 GM/DL Albumin 3.9 GM/DL Lipase 76 U/L Salicylates Level LESS THAN 1.7 MG/DL Acetaminophen Level LESS THAN 2.0 MCG/ML Ethyl Alcohol Level 108 MG/DL White Blood Count 5.9 TH/MM3 Red Blood Count 4.39 MIL/MM3 Hemoglobin 14.0 GM/DL Hematocrit 40.0 % Mean Corpuscular Volume 91.2 FL Mean Corpuscular Hemoglobin 31.8 PG Mean Corpuscular Hemoglobin Concent 34.9 % Red Cell Distribution Width 13.5 % Platelet Count 257 TH/MM3 Mean Platelet Volume 7.0 FL Neutrophils (%) (Auto) 58.0 % Lymphocytes (%) (Auto) 29.2 % Monocytes (%) (Auto) 10.0 % Eosinophils (%) (Auto) 2.4 % Basophils (%) (Auto) 0.4 % Neutrophils # (Auto) 3.4 TH/MM3 Lymphocytes # (Auto) 1.7 TH/MM3 Monocytes # (Auto) 0.6 TH/MM3 Eosinophils # (Auto) 0.1 TH/MM3 Basophils # (Auto) 0.0 TH/MM3 CBC Comment DIFF FINAL Differential Comment Differential Diagnosis MDM: High Differential diagnoses: Schizophrenia, schizoaffective disorder, bipolar, anxiety, depression, adjustment reaction, mood disorder NOS, ODD, depressive disorder NOS, dementia, dementia with agitation, psychosis NOS, substance induced mood disorder, DMDD, Asperger syndrome, infection,electrolyte abnormality, malingering. Narrative Course Mental health screening discussed with the patient. Psychiatric screen ordered. The patient has been medically cleared. The patient will be transferred to [facility]. Diagnosis Primary Impression: Medical clearance for psychiatric admission Additional Impression: Right upper quadrant abdominal pain Disposition: 65 DISC TO [facility] Condition: Stable Scottie Mcdonald Oct 24, 2017 22:19
[2017-10-24 22:44] VITALS: BP_SYST 11; BP_SYST 111; BP_DIAS 57; PULSE 73; RESP 18; O2SAT 97
== END 2017-10-24 23:38 ==
LOC: NEPD 11:00 → NEPJ 23:38
DX: R10.11 Right upper quadrant pain (principal); R19.7 Diarrhea, unspecified; F17.200 Nicotine dependence, unspecified, uncomplicated; B19.20 Unspecified viral hepatitis C without hepatic coma
CPT/HCPCS: 74177; 80048; 80076; 80307; 83690; 85025; 99285; Q9967

== ENCOUNTER 2017-10-31 06:27 | Emergency (ER) | payer SELFPAY ==
[~2017-10-31] VITALS: Ht 188 cm; Wt 100.0 kg
[~2017-10-31 06:27] MED LIST changes: +AMBI10TA PO; +CYMB60CA PO; +LORA-474 PO; -METH40TA PO
[2017-10-31 06:30] VITALS: BP 129/83; PULSE 88; RESP 16; TEMP 98.3; O2SAT 98
[2017-10-31] MEDS ORDERED: VENL25TA PO (06:49)
[2017-10-31 07:00] LABS: AUTOMATED NEUTROPHIL # 4.3 TH/MM3 (1.8-7.7); BASOPHIL % 0.3 % (0.0-2.0); EOSINOPHIL # 0.2 TH/MM3 (0-0.4); EOSINOPHIL % 2.8 % (0.0-4.0); HEMATOCRIT 39.6 % (39.0-51.0); HEMOGLOBIN 13.8 GM/DL (13.0-17.0); LYMPH % 24.4 % (9.0-44.0); LYMPHOCYTE # 1.6 TH/MM3 (1.0-4.8); MEAN CORPUSCULAR HEMOGLOBIN 32.5 PG (27.0-34.0); MEAN CORPUSCULAR HGB CONC 34.9 % (32.0-36.0); MEAN PLATELET VOLUME 7.4 FL (7.0-11.0); MONO % 6.8 % (0.0-8.0); MONOCYTE # 0.4 TH/MM3 (0-0.9); NEUT % 65.7 % (16.0-70.0); PLATELET COUNT 279 TH/MM3 (150-450); RED BLOOD COUNT 4.26 MIL/MM3 (4.50-5.90); RED CELL DISTRIBUTION WIDTH 13.7 % (11.6-17.2); WHITE BLOOD COUNT 6.6 TH/MM3 (4.0-11.0)
[2017-10-31] MEDS ORDERED: levETIRAcetam 500 MG TAB PO ONE (07:15)
[2017-10-31 07:21] LABS: BICARBONATE 23.1 MEQ/L (21.0-32.0); CALCIUM 8.7 MG/DL (8.5-10.1); CREATININE 0.86 MG/DL (0.60-1.30)
[2017-10-31 07:51] VITALS: BP 125/70; PULSE 82; RESP 16; O2SAT 100
--- NOTE | 2017-10-31 08:29 | RADRPT ---
EXAM DATE/TIME: 10/31/2017 08:09 [facility] COMPARISON: CT BRAIN W/O CONTRAST, June 30, 2016, 10:54. INDICATIONS : Cephalgia. Witnessed seizure. RADIATION DOSE: 36.52 CTDIvol (mGy) MEDICAL HISTORY : None SURGICAL HISTORY : Appendectomy. Cholecystectomy. ENCOUNTER: Initial ACUITY: 1 day PAIN SCALE: 3/10 LOCATION: Bilateral distal TECHNIQUE: Multiple contiguous axial images were obtained of the head. Using automated exposure control and adj ustment of the mA and/or kV according to patient size, radiation dose was kept as low as reasonably a chievable to obtain optimal diagnostic quality images. DICOM format image data is available electro nically for review and comparison. FINDINGS: CEREBRUM: The ventricles are normal for age. No evidence of midline shift, mass lesion, hemorrhage or acute in farction. No extra-axial fluid collections are seen. POSTERIOR FOSSA: The cerebellum and brainstem are intact. The 4th ventricle is midline. The cerebellopontine angle i s unremarkable. EXTRACRANIAL: The visualized portion of the orbits is intact. SKULL: The calvaria is intact. No evidence of skull fracture. CONCLUSION: No acute disease. No significant change has occurred. Jd Kate MD on October 31, 2017 at 8:23 Board Certified Radiologist. This report was verified electronically.
[2017-10-31] MEDS ORDERED: LEVE500 PO (08:55)
--- NOTE | 2017-10-31 08:55 | PD ---
HPI Chief Complaint: Seizure Time Seen by Provider: 07:02 Travel History International Travel<30 days: No Contact w/Intl Traveler<30days: No Traveled to known affect area: No History of Present Illness HPI Patient is a 27 year old male who comes in after a seizure. He says he has had seizures in the past, usually from withdrawal. He says he was on Keppra for seizures as well, but has not had it for the past week. He says he was feeling fine today, but he was unable to sleep. He does not remember the seizure, says he just woke up on the ground. Currently, he complains of some low back pain and pain to his tongue, because he says he bit it. He denies fever or chills. He denies headache. He is currently at [facility] for detox from opiates. He says he has been receiving ativan for withdrawal symptoms. PFSH Past Medical History Hx Anticoagulant Therapy: No Blood Disorders: No Bipolar Disorder: Yes Anxiety: Yes Depression: Yes Cancer: No Cardiovascular Problems: No Chemotherapy: No Cerebrovascular Accident: No Diabetes: No Diminished Hearing: No Endocrine: No Genitourinary: No Hepatitis: Yes (Hep C) Immune Disorder: No Implanted Vascular Access Dvce: No Musculoskeletal: No Psychiatric: Yes (bipolar schizophrenic) Reproductive: No Respiratory: No Immunizations Current: Yes Seizures: Yes (SUBSTANCE ABUSE WITHDRAWL) Tetanus Vaccination: < 5 Years Influenza Vaccination: No Past Surgical History Abdominal Surgery: Yes (gallbladder) AICD: No Appendectomy: Yes Cardiac Surgery: No Cholecystectomy: Yes (May 2010) Ear Surgery: No Endocrine Surgery: No Eye Surgery: No Genitourinary Surgery: No Gynecologic Surgery: No Hysterectomy: No Neurologic Surgery: No Oral Surgery: No Pacemaker: No Thoracic Surgery: No Other Surgery: Yes (gallbladder & appendix) Social History Alcohol Use: Yes Tobacco Use: Yes (1 ppd) Substance Use: Yes (POLYSUBSTANCE) Allergies-Medications (Allergen,Severity, Reaction): Coded Allergies: No Known Allergies (Verified Adverse Reaction, Unknown, 10/24/17) Reported Meds & Prescriptions Reported Meds & Active Scripts Active Keppra (Levetiracetam) 500 Mg Tab 500 Mg PO BID Reported Effexor (Venlafaxine HCl) 25 Mg Tab Unknown Dose PO Q12H Ambien (Zolpidem Tartrate) 10 Mg Tab 10 Mg PO HS PRN Ativan (Lorazepam) 1 Mg Tab 1 Mg PO TID PRN Review of Systems Except as stated in HPI: all other systems reviewed are Neg General / Constitutional: No: Fever, Chills Eyes: No: Blurred Vision HENT: No: Headaches, Lightheadedness, Sore Throat Cardiovascular: No: Chest Pain or Discomfort Respiratory: No: Shortness of Breath Gastrointestinal: No: Nausea, Vomiting Musculoskeletal: Positive: Pain, No: Edema Skin: No Rash, No Change in Pigmentation Neurologic: Positive: Seizures, No: Weakness, Dizziness Physical Exam Narrative GENERAL: Awake and alert, in no acute distress. SKIN: Focused skin assessment warm/dry. No wounds. HEAD: Atraumatic. Normocephalic. EYES: Pupils equal and round and reactive. No scleral icterus. EOMI. ENT: Mucous membranes pink and moist. NECK: Trachea midline. No JVD. CARDIOVASCULAR: Regular rate and rhythm. No murmur appreciated. RESPIRATORY: No accessory muscle use. Clear to auscultation. Breath sounds equal bilaterally. GASTROINTESTINAL: Abdomen soft, non-tender, nondistended. MUSCULOSKELETAL: No obvious deformities. No clubbing. No cyanosis. No edema. No spinal tenderness. NEUROLOGICAL: Awake and alert. No obvious cranial nerve deficits. Motor grossly within normal limits. Normal speech. PSYCHIATRIC: Appropriate mood and affect; insight and judgment normal. Data Data Last Documented VS Vital Signs Date Time Temp Pulse Resp B/P (MAP) Pulse Ox O2 Delivery O2 Flow Rate FiO2 10/31/17 10:42 10/31/17 07:51 82 16 100 10/31/17 06:30 98.3 Orders Orders Blood Glucose (10/31/17 06:36) Oximetry (10/31/17 06:36) Iv Access Insert/Monitor (10/31/17 06:36) Ecg Monitoring (10/31/17 06:36) Oxygen Administration (10/31/17 06:36) Basic Metabolic Panel (Bmp) (10/31/17 06:36) Complete Blood Count With Diff (10/31/17 06:36) Electrocardiogram (10/31/17 ) Magnesium (Mg) (10/31/17 07:12) Ct Brain W/O Iv Contrast(Rout) (10/31/17 ) Levetiracetam (Keppra) (10/31/17 07:15) Ed Discharge Order (10/31/17 08:55) Labs Laboratory Tests Test 10/31/17 06:45 10/31/17 07:30 White Blood Count 6.6 TH/MM3 Red Blood Count 4.26 MIL/MM3 Hemoglobin 13.8 GM/DL Hematocrit 39.6 % Mean Corpuscular Volume 93.0 FL Mean Corpuscular Hemoglobin 32.5 PG Mean Corpuscular Hemoglobin Concent 34.9 % Red Cell Distribution Width 13.7 % Platelet Count 279 TH/MM3 Mean Platelet Volume 7.4 FL Neutrophils (%) (Auto) 65.7 % Lymphocytes (%) (Auto) 24.4 % Monocytes (%) (Auto) 6.8 % Eosinophils (%) (Auto) 2.8 % Basophils (%) (Auto) 0.3 % Neutrophils # (Auto) 4.3 TH/MM3 Lymphocytes # (Auto) 1.6 TH/MM3 Monocytes # (Auto) 0.4 TH/MM3 Eosinophils # (Auto) 0.2 TH/MM3 Basophils # (Auto) 0.0 TH/MM3 CBC Comment DIFF FINAL Differential Comment Blood Urea Nitrogen 16 MG/DL Creatinine 0.86 MG/DL Random Glucose 106 MG/DL Calcium Level 8.7 MG/DL Sodium Level 137 MEQ/L Potassium Level 5.0 MEQ/L Chloride Level 108 MEQ/L Carbon Dioxide Level 23.1 MEQ/L Anion Gap 6 MEQ/L Estimat Glomerular Filtration Rate 105 ML/MIN Magnesium Level 2.2 MG/DL MDM Medical Decision Making Medical Screen Exam Complete: Yes Emergency Medical Condition: Yes Medical Record Reviewed: Yes Differential Diagnosis seizure vs withdrawal vs electrolyte abnormality Narrative Course Patient is a 27-year-old male who comes in after seizure. He says he did take Keppra for seizures, but has not had a any for a week. Exam shows no neurologic abnormalities. IV established, labs sent. Labs show no acute abnormalities. CT head performed shows no acute abnormalities. Patient given a dose of Keppra. He'll be discharged with a prescription for Keppra. Advised follow-up with neurology. Advised to return to the ED as needed for any worsening symptoms. Diagnosis Primary Impression: Seizure Referrals: James Soto PhD MD call for appointment Patient Instructions: General Instructions, Recurrent Seizures in Adults (ED) Additional Instructions: Take the Keppra twice a day. Follow up with neurology. Return to the ED as needed for any worsening symptoms. Scripts Levetiracetam (Keppra) 500 Mg Tab 500 MG PO BID for Control Seizures, #60 TAB 0 Refills Prov: Lakshmi Riggins MD 10/31/17 Disposition: 01 DISCHARGE HOME Condition: Stable Lakshmi Riggins MD Oct 31, 2017 08:55
--- NOTE | 2017-10-31 17:30 | EKG ---
Date Performed: 10/31/2017 Time Performed: 06:36:19 PTAGE: 27 years EKG: Sinus rhythm Since previous tracing, no significant change noted NORMAL ECG PREVIOUS TRACING : 07/04/2010 12.25 DOCTOR: Ghazal Montgomery Interpretating Date/Time 10/31/2017 17:30:26
== END 2017-10-31 11:54 | disposition home or self-care (01) ==
LOC: NEPC 06:27
DX: R56.9 Unspecified convulsions (principal); F17.200 Nicotine dependence, unspecified, uncomplicated; F31.9 Bipolar disorder, unspecified
CPT/HCPCS: 70450; 80048; 83735; 85025; 93005